=== PATIENT | female | born 1990 | race Caucasian/White ===

== ENCOUNTER 2020-05-31 11:15 | Inpatient (IN) | payer OTHER ==
[~2020-05-31] VITALS: Ht 157.5 cm; Wt 54.4 kg
[2020-05-31] MEDS ORDERED: STELARA90 MG/1 ML (16:01)
[2020-05-31] MEDS ORDERED: MILLIPRED5 MG PO (16:02)
[2020-05-31] MEDS ORDERED: INDERAL LA80 MG PO (16:02)
[2020-06-07] MEDS ORDERED: PREDNISONE10 M2 (11:49)
[2020-06-07] MEDS ORDERED: PROPRANOLOL HCL10 MG PO (15:50)
[2020-06-11] MEDS ORDERED: PREDNISONE10 M2 (11:12)
[2020-06-11] MEDS ORDERED: OXYC1TAB9 PO (14:16)
[2020-06-11] MEDS ORDERED: INTESTINEX680 M1 PO (14:17)
[2020-06-11] MEDS ORDERED: PHENERGAN25 MG PO (14:17)
[2020-06-11] MEDS ORDERED: PANTOPRAZOLE SO40 MG PO (14:17)
== END 2020-06-11 15:00 | disposition home or self-care (01) | DRG 348 ==
LOC: EDSTATUS 11:15 → ADM 11:15 → O/R 06-07 09:00 → SURH 06-07 09:00 → O/R 06-07 11:15 → SURG 06-07 14:28 → SURH 06-07 16:04
PROVIDERS: ADMIT Surgery; ATTEND Surgery
PROC: 0DBB4ZZ Excision of Ileum, Percutaneous Endoscopic Approach (ICD-10-PCS; principal; 2020-06-07 13:30)
DX: K50.012 Crohn's disease of small intestine with intestinal obstruction (principal); K56.609 Unspecified intestinal obstruction, unspecified as to partial versus complete obstruction; I34.1 Nonrheumatic mitral (valve) prolapse; J45.20 Mild intermittent asthma, uncomplicated; Z79.52 Long term (current) use of systemic steroids; Z20.822 Contact with and (suspected) exposure to COVID-19

== ENCOUNTER 2020-06-25 13:36 | Inpatient (IN) | payer OTHER ==
[~2020-06-25] VITALS: Ht 157.5 cm; Wt 54.4 kg
[~2020-06-25 13:36] MED LIST: INDERAL LA80 MG PO; INTESTINEX680 M1 PO; MILLIPRED5 MG PO; OXYC1TAB9 PO; PANTOPRAZOLE SO40 MG PO; PHENERGAN25 MG PO; PREDNISONE10 M2; PROPRANOLOL HCL10 MG PO; STELARA90 MG/1 ML
--- NOTE | 2020-06-25 13:56 | NUR ---
PACIENTE ALERTA Y ORIENTADA EN L[place] BR[place]EN ESFERAS. PACIENTE VIENE PARA REALIZARSE UN CT. PACIENTE FUE OPERADA DE LAPARASCOPIA EL PASADO [address] PACIENTE DE DR. GARCÍA CON EL CUAL TIENE ALICJA EL EVA DE MANANA. AL MOMENTO DE TRIAGE LA PACIENTE REFIERE DOLOR ABDOMINAL.
--- NOTE | 2020-06-25 14:49 | NUR ---
PACIENTE EVALUADA POR EL MEDICO EN TUR[place], SE VERIFICAN LAS ORDENES MEDICAS Y SE ORIENTA AL PACIENTE SOBRE LAS MISMAS. SE LE REALIZAN LAS MUETRAS SE GERRI YCT ABDOMINAL TOMMY LAS ORDENES MEDICAS.
--- NOTE | 2020-06-25 16:01 | NUR ---
PACIENTE FEMINA ALERTA ORIENTADA EVIDAMENTE IDENTIFICADA. SE RE ORIENTA SOBRE EL TRATAMIENTO LA MISMA REFIERE ENTENDER. PENDIENTE REALIZAR CT PO EN ESPERA DEL MISMO. SE NICHOLAS PRIVACIDAD SEGURIDAD Y SE ASISTE A DOUGLAS NECESIDADES EN TODO MOMENTO.
== END 2020-06-30 14:32 | disposition home or self-care (01) | DRG 392 ==
LOC: ER 13:36 → SURH 20:26
PROVIDERS: ADMIT Surgery; ATTEND Surgery
PROC: BW211ZZ Computerized Tomography (CT Scan) of Abdomen and Pelvis using Low Osmolar Contrast (ICD-10-PCS; 2020-06-25)
PROC: 02HV33Z Insertion of Infusion Device into Superior Vena Cava, Percutaneous Approach (ICD-10-PCS; principal; 2020-06-26)
PROC: 3E043KZ Introduction of Other Diagnostic Substance into Central Vein, Percutaneous Approach (ICD-10-PCS; 2020-06-26)
PROC: BW21Y0Z Computerized Tomography (CT Scan) of Abdomen and Pelvis using Other Contrast, Unenhanced and Enhanced (ICD-10-PCS; 2020-06-29)
DX: K52.9 Noninfective gastroenteritis and colitis, unspecified (principal); K50.019 Crohn's disease of small intestine with unspecified complications; K56.600 Partial intestinal obstruction, unspecified as to cause; I34.1 Nonrheumatic mitral (valve) prolapse; J45.20 Mild intermittent asthma, uncomplicated; Z79.52 Long term (current) use of systemic steroids; Z20.822 Contact with and (suspected) exposure to COVID-19